=== PATIENT | female | born 2000 | race Caucasian/White ===

== ENCOUNTER 2021-12-30 01:37 | Emergency (ER) | payer OTHER ==
[~2021-12-30] VITALS: Ht 157.5 cm; Wt 63.2 kg
--- NOTE | 2021-12-30 01:43 | PHYS DOC ---
General Adult HPI: HPI: " The right side of my face feels weak... ".. " I think.. I got what my grand ..mother.. it [place] Palsy..." Patient is a 21 year old female who presents with above hx and complaints of Rt facial weakness. Pt. weakness is very minimal. Pt. recent travel from [place] to [facility]. No history immunosuppression. No history of trauma. No specific ill contacts. Up-to-date with vaccinations including Covid x2. Normally healthy. No visual changes. No other neuro symptoms. Review of Systems: Review of Systems: Constitutional: Denies fever or chills Eyes: Denies change in visual acuity HENT: Denies nasal congestion or sore throat. Complains of right facial weakness area of facial nerve Respiratory: Denies cough or shortness of breath Cardiovascular: Denies chest pain or edema GI: Denies abdominal pain, nausea, vomiting, bloody stools or diarrhea : Denies dysuria Musculoskeletal: Denies back pain or joint pain Integument: Denies rash Neurologic: Denies headache, focal weakness or sensory changes. Complains of right facial weakness Endocrine: Denies polyuria or polydipsia Lymphatic: Denies swollen glands Psychiatric: Denies depression or anxiety Family History: Family History: Grandmother had Machuca's palsy Current Medications: Current Meds: See nursing for home meds Allergies: Allergies: No known drug allergies Physical Exam: PE: Constitutional: Well developed, well nourished, no acute distress, non-toxic appearance. [] HENT: Normocephalic, atraumatic, bilateral external ears normal, oropharynx moist, no oral exudates, nose normal. Acne . Subjective complaints of right facial weakness facial nerve distribution Eyes: PERRLA, EOMI, conjunctiva normal, no discharge. [] Glasses Neck: Normal range of motion, no tenderness, supple, no stridor. [] Cardiovascular:Heart rate regular rhythm, no murmur [] Lungs & Thorax: Bilateral breath sounds equal and apex on auscultation [] Abdomen: Bowel sounds normal, soft, no tenderness, no masses, no pulsatile masses. [] Skin: Warm, dry, no erythema, acne Back: No tenderness, no CVA tenderness. [] Extremities: No tenderness, no cyanosis, no clubbing, ROM intact, no edema. [] Neurologic: Alert and oriented X 3, normal motor function, normal sensory function, no focal deficits noted. DTRs +2 patella and brachial. Rotating Equipment Engineer equal. No drift. Ambulatory without problems. [id number] Psychologic: Affect anxious, judgement normal, mood normal. [] EKG: EKG: [] Radiology/Procedures: Radiology/Procedures: [][address] [address] IMAGING REPORT Signed PATIENT: IRIS MORENO ACCOUNT: [id number] : 2000 LOCATION: ER AGE: 21 SEX: F EXAM STATUS: REG ER ORD. PHYSICIAN: VANIA NEELY MD REASON: facial weakness, dizzy PROCEDURE: CT HEAD WO CONTRAST EXAM: CT head without contrast INDICATION: Facial weakness, dizziness COMPARISON: None TECHNIQUE: Axial CT imaging through the head without intravenous contrast. Sagittal and coronal reformats were obtained. One or more of the following individualized dose reduction techniques were utilized for this examination: 1. Automated exposure control 2. Adjustment of the mA and/or kV according to patient size 3. Use of iterative reconstruction technique. FINDINGS: The ventricles and sulci are normal. Webster-white matter differentiation is maintained. There is no intracranial hemorrhage, acute infarct, or mass lesion. Basal cisterns are clear. The skull and scalp are intact. Paranasal sinuses and mastoid air cells are clear. Globes and orbits are intact. IMPRESSION: Normal CT of the head. Electronically signed by: Trina Briones MD (12/30/2021 2:37 AM) [facility] DICTATED AND SIGNED BY: TRINA BRIONES MD DATE: 12/30/21 0236 CC: VANIA NEELY MD; PCP,NO ~MTH0 0 Heart Score: C/O Chest Pain: N/A Risk Factors: Risk Factors: DM, Current or recent (<one month) smoker, HTN, HLP, family history of CAD, obesity. Risk Scores: Score 0 - 3: 2.5% MACE over next 6 weeks - Discharge Home Score 4 - 6: 20.3% MACE over next 6 weeks - Admit for Clinical Observation Score 7 - 10: 72.7% MACE over next 6 weeks - Early Invasive Strategies Course & Med Decision Making: Course & Med Decision Making Pertinent Labs and Imaging studies reviewed. (See chart for details) Patient use eye lubricant as needed. If needed tape eye shut on the right when sleeping. Follow-up primary care. Use compresses and massage. Follow-up primary care. Tylenol and ibuprofen for discomfort. Impression: 1. Machuca's palsy- very mild presentation [] Dragon Disclaimer: Dragon Disclaimer: This electronic medical record was generated, in whole or in part, using a voice recognition dictation system. Departure Departure: Referrals: PCP,NO (PCP) Dragon Disclaimer This chart was dictated in whole or in part using Voice Recognition software in a busy, high-work load, and often noisy Emergency Department environment. It may contain unintended and wholly unrecognized errors or omissions. Dragon Disclaimer This chart was dictated in whole or in part using Voice Recognition software in a busy, high-work load, and often noisy Emergency Department environment. It may contain unintended and wholly unrecognized errors or omissions. Dragon Disclaimer This chart was dictated in whole or in part using Voice Recognition software in a busy, high-work load, and often noisy Emergency Department environment. It may contain unintended and wholly unrecognized errors or omissions. VANIA NEELY MD Dec 30, 2021 01:43
[2021-12-30 01:58] VITALS: BP 127/73
--- NOTE | 2021-12-30 02:39 | RAD ---
EXAM: CT head without contrast INDICATION: Facial weakness, dizziness COMPARISON: None TECHNIQUE: Axial CT imaging through the head without intravenous contrast. Sagittal and coronal refor mats were obtained. One or more of the following individualized dose reduction techniques were utilized for this examinat ion: 1. Automated exposure control 2. Adjustment of the mA and/or kV according to patient size 3. Use of iterative reconstruction technique. FINDINGS: The ventricles and sulci are normal. Webster-white matter differentiation is maintained. There is no in tracranial hemorrhage, acute infarct, or mass lesion. Basal cisterns are clear. The skull and scalp a re intact. Paranasal sinuses and mastoid air cells are clear. Globes and orbits are intact. IMPRESSION: Normal CT of the head. Electronically signed by: Trina Briones MD (12/30/2021 2:37 AM) [facility]
== END 2021-12-30 03:06 | disposition home or self-care (01) ==
LOC: ER 01:37
DX: G51.0 Bell's palsy (principal)
CPT/HCPCS: 70450; 81025; 99284